=== PATIENT | female | born 1940 | race Caucasian/White ===

== ENCOUNTER 2017-09-17 08:00 | Outpatient (CLI) | payer MEDICARE, BC | END 2017-09-17 08:01 | disposition home or self-care (01) | LOC: BICMAMMO 08:00 | PROVIDERS: ATTEND Obstetrics & Gynecology | DX: Z12.31 Encounter for screening mammogram for malignant neoplasm of breast (principal); Z13.820 Encounter for screening for osteoporosis; M85.88 Other specified disorders of bone density and structure, other site | CPT/HCPCS: 77063; 77080; G0202; 77067 ==

== ENCOUNTER 2018-09-23 10:23 | Outpatient (CLI) | payer MEDICARE, BC | END 2018-09-23 10:24 | disposition home or self-care (01) | LOC: BICMAMMO 10:23 | PROVIDERS: ATTEND Internal Medicine | DX: Z12.31 Encounter for screening mammogram for malignant neoplasm of breast (principal) | CPT/HCPCS: 77063; 77067 ==

== ENCOUNTER 2019-01-28 13:46 | Outpatient (CLI) | payer MEDICARE, BC ==
--- NOTE | 2019-01-28 14:00 | RAD ---
Chest 2 views HISTORY: Dyspnea. COMPARISON: None available. FINDINGS: Cardiac silhouette and pulmonary vasculature are unremarkable. Mediastinum is midline with aortic calcification. No confluent airspace consolidation, pneumothorax, or pleural fluid are evident. IMPRESSION: Atherosclerosis. No active cardiopulmonary abnormalities are otherwise demonstrated.
== END 2019-01-28 13:47 | disposition home or self-care (01) ==
LOC: RAD 13:46
PROVIDERS: ATTEND Internal Medicine Critical Care Medicine
DX: R06.00 Dyspnea, unspecified (principal); I70.0 Atherosclerosis of aorta
CPT/HCPCS: 71046

== ENCOUNTER 2019-07-08 14:01 | Outpatient (CLI) | payer MEDICARE, BC ==
--- NOTE | 2019-07-09 11:54 | PFT ---
PATIENT HISTORY: HEIGHT: 64 IN WEIGHT: 190 SMOKER: NO HOW LONG: NEVER PACKS PER DAY PRODUCTIVE COUGH: LUNG DISEASE: PHYSICIAN INTERPRETATION FINAL REPORT: Patient had good effort and good cooperation. PFT data: FVC 2.67 (96%), FEV1 2.09 (101%), FEV1/FVC 0.78. RV 1.58 (73%), TLC 4.22 (86%) DIFFUSION 11.51 (53%) The FEV1 and FVC fall within the normal limits. There is no significant improvement following the administration of a bronchodilator. The ratio is normal suggesting no evidence of obstructive air flow limitation. Diffusion Capacity is moderately impaired. Compared to 2011, there has been no significant change in the FVC. There has been a 250 ml decline to the FEV1, and there has been a insignificant reduction to the Diffusion Capacity. There has been no significant change compared to 2013. IMPRESSION: Overall, these pulmonary function studies are consistent with isolated reduced Diffusion Capacity. Pulmonary vascular disorders to be considered. Rubber Splicer: BRADY Sales Service Assistant: BRADY RODAS
== END 2019-07-08 14:02 | disposition home or self-care (01) ==
LOC: CP 14:01
PROVIDERS: ATTEND Internal Medicine Critical Care Medicine
DX: M34.9 Systemic sclerosis, unspecified (principal); R94.2 Abnormal results of pulmonary function studies
CPT/HCPCS: 94060; 94727; 94729

== ENCOUNTER 2019-10-04 08:22 | Outpatient (CLI) | payer MEDICARE, BC ==
--- NOTE | 2019-10-04 11:53 | MMO ---
Bilateral MAMMO Bilat Screen [facility]. CLINICAL HISTORY: Patient is 79 years old and is seen for screening. The patient has no family history of breast cancer. The patient has no personal history of cancer. The patient has a history of right Excisional Biopsy - benign and left Excisional Biopsy - benign. VIEWS: The views performed were: bilateral craniocaudal with tomosynthesis and bilateral mediolateral oblique with tomosynthesis. FILMS COMPARED: The present examination has been compared to prior imaging studies performed at [facility] on 09/17/2017 and 09/23/2018, and at [facility] on 07/25/2015 and 08/14/2016. This study has been interpreted with the assistance of computer-aided detection. MAMMOGRAM FINDINGS: There are scattered fibroglandular densities. There are no suspicious masses, suspicious calcifications, or new areas of architectural distortion. IMPRESSION: THERE IS NO MAMMOGRAPHIC EVIDENCE OF MALIGNANCY. A ROUTINE FOLLOW-UP MAMMOGRAM IN 1 YEAR IS RECOMMENDED. THE RESULTS OF THIS EXAM WERE SENT TO THE PATIENT. ACR BI-RADS Category 1 - Negative MAMMOGRAPHY NOTE: 1. A negative mammogram report should not delay a biopsy if a dominant of clinically suspicious mass is present. 2. Approximately 10% to 15% of breast cancers are not detected by mammography. 3. Adenosis and dense breasts may obscure an underlying neoplasm. Reported by: KARY CHAMBERS MD Electonically Signed: [id number]
== END 2019-10-04 08:23 | disposition home or self-care (01) ==
LOC: BICMAMMO 08:22
PROVIDERS: ATTEND Internal Medicine
DX: Z12.31 Encounter for screening mammogram for malignant neoplasm of breast (principal)
CPT/HCPCS: 77063; 77067

== ENCOUNTER 2020-06-19 14:04 | Outpatient (CLI) | payer MEDICARE, BC ==
--- NOTE | 2020-06-19 14:39 | BD ---
EXAM: DEXA bone density examination HISTORY: 79-year-old postmenopausal female for screening COMPARISON: None FINDINGS: Right femoral neck--bone mineral density0.761; T score -0.8 Total proximal right femur--bone mineral density 0.890; T score -0.4 Left femoral neck--bone mineral density0.760; T score -0.8 Total proximal left femur--bone mineral density 0.919; T score -0.2 IMPRESSION: Normal bone density. This patient has a 10 year WHO fracture risk of a major osteoporotic fracture of 9.8% and of a hip fracture of 1.5%.
== END 2020-06-19 14:05 | disposition home or self-care (01) ==
LOC: BICMAMMO 14:04
PROVIDERS: ATTEND Internal Medicine Rheumatology
DX: M81.0 Age-related osteoporosis without current pathological fracture (principal)
CPT/HCPCS: 77080

== ENCOUNTER 2020-10-06 09:52 | Outpatient (CLI) | payer MEDICARE, BC ==
--- NOTE | 2020-10-06 10:20 | MMO ---
Bilateral MAMMO Bilat Screen [facility]. CLINICAL HISTORY: Patient is 80 years old and is seen for screening. The patient has no family history of breast cancer. The patient has no personal history of cancer. The patient has a history of right Excisional Biopsy - benign and left Excisional Biopsy - benign. VIEWS: The views performed were: bilateral craniocaudal with tomosynthesis and bilateral mediolateral oblique with tomosynthesis. FILMS COMPARED: The present examination has been compared to prior imaging studies performed at [facility] [place] on [place]/17/2017, 09/23/2018 and 10/04/2019, and at [facility] on 08/14/2016. This study has been interpreted with the assistance of computer-aided detection. MAMMOGRAM FINDINGS: There are scattered fibroglandular densities. There are no suspicious masses, suspicious calcifications, or new areas of architectural distortion. IMPRESSION: THERE IS NO MAMMOGRAPHIC EVIDENCE OF MALIGNANCY. A ROUTINE FOLLOW-UP MAMMOGRAM IN 1 YEAR IS RECOMMENDED. THE RESULTS OF THIS EXAM WERE SENT TO THE PATIENT. ACR BI-RADS Category 1 - Negative MAMMOGRAPHY NOTE: 1. A negative mammogram report should not delay a biopsy if a dominant of clinically suspicious mass is present. 2. Approximately 10% to 15% of breast cancers are not detected by mammography. 3. Adenosis and dense breasts may obscure an underlying neoplasm. Reported by: BRAEDEN SEPULVEDA MD Electonically Signed: [id number]
== END 2020-10-06 09:53 | disposition home or self-care (01) ==
LOC: BICMAMMO 09:52
PROVIDERS: ATTEND Internal Medicine
DX: Z12.31 Encounter for screening mammogram for malignant neoplasm of breast (principal); Z91.89 Other specified personal risk factors, not elsewhere classified
CPT/HCPCS: 77063; 77067

== ENCOUNTER 2021-11-14 09:35 | Outpatient (CLI) | payer MEDICARE, BC | END 2021-11-14 09:36 | disposition home or self-care (01) | LOC: BICRAD 09:35 | PROVIDERS: ATTEND Internal Medicine Rheumatology | DX: M17.11 Unilateral primary osteoarthritis, right knee (principal) ==

== ENCOUNTER 2022-05-14 09:18 | Outpatient (CLI) | payer MEDICARE, BC ==
[2022-05-14 11:18] LABS: Hemoglobin 10.7 g/dL (12.0-15.5); Mean Corpuscular HGB CONC 30.9 g/dL (32.0-36.0); Mean Corpuscular Hemoglobin 26.2 pg (27.0-33.0); Mean Corpuscular Volume 84.6 fl (81.6-98.3); Mean Platelet Volume 12.5 fl (7.4-10.4); Platelet Count 222 10x3/uL (150-450); RBC Distribution Width 15.9 % (11.5-14.5); Red Blood Cell (RBC) Count 4.09 10x6/uL (3.90-5.03)
[2022-05-14 11:34] LABS: INR-International Normal Ratio 1.1; Prothrombin Time 11.7 sec (9.5-12.1)
[2022-05-14 11:49] LABS: Anion Gap 13 mmol/L (10-20); BUN (Urea Nitrogen) 14 mg/dL (9.8-20.1); Calc. Creatinine Clearance 0 mL/min (70-130); Calcium 8.9 mg/dL (7.8-10.44); Carbon Dioxide 25 mmol/L (23-31); Chloride 105 mmol/L (98-107); Estimated GFR 78; Glucose 174 mg/dL (83-110); Potassium 4.7 mmol/L (3.5-5.1); Sodium 138 mmol/L (136-145)
== END 2022-05-14 09:19 | disposition home or self-care (01) ==
LOC: LABBT 09:18
PROVIDERS: ATTEND Internal Medicine Cardiovascular Disease
DX: Z01.812 Encounter for preprocedural laboratory examination (principal); I48.3 Typical atrial flutter; Z20.822 Contact with and (suspected) exposure to COVID-19
CPT/HCPCS: 80048; 85027; 85610; 87811

== ENCOUNTER 2022-07-03 06:33 | Inpatient (IN) | payer MEDICARE, BC ==
[2022-07-03] MEDS ORDERED: Heparin 10,000 UNITS/ 10 ML VIAL ONE ×2 (06:51→08:58)
[2022-07-03] MEDS ORDERED: Isoproterenol 0.2 MG/1 ML AMP ONE ×3 (06:51→09:35)
[2022-07-03] MEDS ORDERED: Lidocaine 1% 50ML VIAL ONE (06:51)
[2022-07-03] MEDS ORDERED: Fentanyl 100 MCG/2 ML VIAL ONE ×2 (07:32→09:33)
[2022-07-03] MEDS ORDERED: PHENYLEPHRINE-NS 100 MCG/ML 10 ML SYRINGE ONE (07:49)
[2022-07-03] MEDS ORDERED: PROPOFOL 200 MG/20 ML VIAL ONE (07:49)
[2022-07-03] MEDS ORDERED: Ondansetron PF 4 MG/2 ML Vial ONE (07:49)
[2022-07-03] MEDS ORDERED: Glycopyrrolate 0.2 MG/ML 5 ML SYRINGE ONE (07:49)
[2022-07-03] MEDS ORDERED: ePHEDrine 50 MG/ML VIAL ONE (07:49)
[2022-07-03] MEDS ORDERED: NEOSTIGMINE 3 MG/3 ML SYR 3 MG/3 ML SYRINGE ONE (07:49)
[2022-07-03] MEDS ORDERED: Heparin 25,000 units/D5W 500 ML ONE (08:41)
[2022-07-03] MEDS ORDERED: Protamine Sulfate 50 MG/5 ML VIAL ONE (09:53)
[2022-07-03 12:23] LABS: Magnesium 1.6 mg/dL (1.6-2.6)
[2022-07-03] MEDS ORDERED: Magnesium 2 GM/50 ML(in water) 2 GM in Premix Bag 1 BAG IVPB SCH (12:45)
== END 2022-07-03 14:50 | disposition home or self-care (01) | DRG 274 ==
LOC: SURG A 06:33
PROVIDERS: ADMIT Internal Medicine Cardiovascular Disease; ATTEND Internal Medicine Cardiovascular Disease
PROC: 02583ZZ Destruction of Conduction Mechanism, Percutaneous Approach (ICD-10-PCS; principal; 2022-07-03)
PROC: 02K83ZZ Map Conduction Mechanism, Percutaneous Approach (ICD-10-PCS; 2022-07-03)
PROC: 4A023N7 Measurement of Cardiac Sampling and Pressure, Left Heart, Percutaneous Approach (ICD-10-PCS; 2022-07-03)
PROC: 4A023FZ Measurement of Cardiac Rhythm, Percutaneous Approach (ICD-10-PCS; 2022-07-03)
PROC: 4A0234Z Measurement of Cardiac Electrical Activity, Percutaneous Approach (ICD-10-PCS; 2022-07-03)
DX: I47.1 Supraventricular tachycardia (principal); Z20.822 Contact with and (suspected) exposure to COVID-19; I10 Essential (primary) hypertension; I25.10 Atherosclerotic heart disease of native coronary artery without angina pectoris; E10.9 Type 1 diabetes mellitus without complications; E78.2 Mixed hyperlipidemia; I73.00 Raynaud's syndrome without gangrene; K21.9 Gastro-esophageal reflux disease without esophagitis; Z79.82 Long term (current) use of aspirin; Z79.4 Long term (current) use of insulin; Z79.899 Other long term (current) drug therapy; Z88.8 Allergy status to other drugs, medicaments and biological substances; Z90.49 Acquired absence of other specified parts of digestive tract; Z90.89 Acquired absence of other organs
CPT/HCPCS: 36415; 36416; 83735; 85347; 93005; 93462; 93623; 93653; C1732; C1759; C1760; C1769; C1894; C2630; J1644; J2405; J2704; J2720; J3010; J3490

== ENCOUNTER 2022-11-26 10:21 | Outpatient (CLI) | payer MEDICARE, BC | END 2022-11-26 10:22 | disposition home or self-care (01) | LOC: BICMAMMO 10:21 | PROVIDERS: ATTEND Internal Medicine Rheumatology | DX: M81.0 Age-related osteoporosis without current pathological fracture (principal); M85.851 Other specified disorders of bone density and structure, right thigh; M85.852 Other specified disorders of bone density and structure, left thigh | CPT/HCPCS: 77080 ==